=== PATIENT | female | born 1965 | race Caucasian/White ===

== ENCOUNTER 2017-04-02 22:58 | Inpatient (IN) | payer SELFPAY ==
[~2017-04-02] VITALS: Ht 170.2 cm; Wt 48.2 kg
[~2017-04-02 22:58] MED LIST: DICY1TAB26 PO; METR-1 PO
[2017-04-02 23:01] VITALS: PULSE 113; RESP 16; TEMP 97.9; O2SAT 98
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
[2017-04-03] MEDS ORDERED: LACTATED RINGER'S 1000 ML INJ 1,000 ML IV ONE ×2 (01:15→12:00)
[2017-04-03] MEDS ORDERED: LORazepam 1 MG TAB PO PRN (01:30)
[2017-04-03] MEDS ORDERED: LORazepam 2 MG/ML VIAL IV PUSH PRN ×4 (01:30)
[2017-04-03] MEDS ORDERED: LORazepam 2 MG TAB PO PRN (01:30)
[2017-04-03] MEDS ORDERED: FLUMAZENIL 0.5 MG/5 ML VIAL IV PUSH PRN (01:30)
[2017-04-03] MEDS ORDERED: SODIUM CHLORIDE 0.9% FLUSH 10 ML FLUSH IV FLUSH PRN (01:30)
[2017-04-03] MEDS ORDERED: NALOXONE HCL 0.4 MG/ML AMP IV PUSH PRN (01:30)
[2017-04-03 01:55] LABS: AUTOMATED NEUTROPHIL # 7.6 TH/MM3 (1.8-7.7); BASOPHIL # 0.1 TH/MM3 (0-0.2); BASOPHIL % 0.6 % (0.0-2.0); EOSINOPHIL % 0.3 % (0.0-4.0); HEMATOCRIT 40.1 % (35.0-46.0); LYMPH % 28.1 % (9.0-44.0); LYMPHOCYTE # 3.3 TH/MM3 (1.0-4.8); MEAN CELL VOLUME 94.6 FL (80.0-100.0); MEAN CORPUSCULAR HEMOGLOBIN 33.1 PG (27.0-34.0); MEAN PLATELET VOLUME 8.5 FL (7.0-11.0); MONO % 5.7 % (0.0-8.0); MONOCYTE # 0.7 TH/MM3 (0-0.9); NEUT % 65.3 % (16.0-70.0); PLATELET COUNT 294 TH/MM3 (150-450); RED BLOOD COUNT 4.24 MIL/MM3 (4.00-5.30); RED CELL DISTRIBUTION WIDTH 13.5 % (11.6-17.2); WHITE BLOOD COUNT 11.7 TH/MM3 (4.0-11.0)
[2017-04-03 02:11] LABS: BICARBONATE 25.5 MEQ/L (21.0-32.0); CALCIUM 8.6 MG/DL (8.5-10.1); CREATININE 0.86 MG/DL (0.50-1.00)
[2017-04-03] MEDS: SODIUM CHLORIDE 0.9% FLUSH 10 ML FLUSH IV FLUSH PRN ×2 (02:18→02:22)
[2017-04-03 02:19] LABS: PROTHROMBIN TIME - PATIENT 10.1 SEC (9.8-11.6)
[2017-04-03 02:25] VITALS: BP 124/76; PULSE 88; RESP 16; O2SAT 98
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
[2017-04-03 04:08] LABS: BILIRUBIN, URINE NEG (NEG); BLOOD, URINE NEG (NEG); GLUCOSE,URINE NEG (NEG); HYALINE CAST, URINE 9 /lpf (RARE); KETONE, URINE TRACE mg/dL (NEG); MUCUS URINE FEW /lpf (OCC); NITRITE,URINE NEG (NEG); SQUAMOUS EPITHELIAL CELL URINE <1 /hpf (0-5); URINE COLOR YELLOW (YELLW/STRAW); URINE LEUKOCYTE ESTERASE NEG (NEG)
[2017-04-03 07:15] VITALS: BP 112/64; PULSE 90; RESP 18; O2SAT 95
[2017-04-03] MEDS ORDERED: SODIUM CHLORID 0.9% 500 ML INJ 500 ML IV ONE (07:15)
[2017-04-03] MEDS: MORPHINE SULFATE 2 MG/ML INJ IV PUSH PRN ×2 (07:17→14:38)
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
[2017-04-03] MEDS ORDERED: SODIUM CHLORIDE 0.9% FLUSH 10 ML FLUSH IV FLUSH SCH (09:00)
[2017-04-03] MEDS: SODIUM CHLORIDE 0.9% FLUSH 10 ML FLUSH IV FLUSH SCH ×2 (09:07→20:29)
[2017-04-03] MEDS ORDERED: GLYCOPYRROLATE 1 MG/5 ML SYRINGE IV PUSH ONE (12:00)
[2017-04-03] MEDS ORDERED: ceFAZolin INJ 1,000 MG VIAL IV ONE ×2 (12:00→19:45)
[2017-04-03] MEDS ORDERED: ONDANSETRON HCL 4 MG/2 ML VIAL IV ONE (12:00)
[2017-04-03] MEDS ORDERED: ROCURONIUM INJ 50 MG/5 ML SYRINGE IV PUSH ONE (12:00)
[2017-04-03] MEDS ORDERED: DEXAMETHASONE SOD PHOS 4 MG/ML VIAL IV ONE (12:00)
[2017-04-03] MEDS ORDERED: LIDOCAINE HCL 1% PF 5 ML SYRINGE OTHER ONE (12:00)
[2017-04-03] MEDS ORDERED: PROPOFOL 200 MG/20 ML AMP IV ONE (12:00)
[2017-04-03] MEDS ORDERED: NEOSTIGMINE 5 MG/5 ML SYRINGE IV PUSH ONE (12:00)
[2017-04-03 12:17] VITALS: BP 117/70; PULSE 69; RESP 18; O2SAT 96
[2017-04-03] MEDS: SODIUM CHLOR 0.9% 1000 ML INJ 1,000 ML IV SCH (16:33)
[2017-04-03] MEDS ORDERED: CHLORHEXIDINE GLUCONATE 0.12% 15 ML CUP ONE (19:18)
[2017-04-03] MEDS ORDERED: LIDOCAINE 2%/EPINEPHrine PF 1:200,000 20ML SDV ONE (19:18)
[2017-04-03 20:00] VITALS: BP 155/75; PULSE 67; RESP 18; TEMP 96.3; O2SAT 95
[2017-04-03] MEDS ORDERED: MIDAZOLAM HCL 2 MG/2 ML VIAL ONE (21:24)
--- NOTE | 2017-04-03 21:30 | HHI.PR ---
Immediate Post Op Note Procedure Date: Apr 03, 2017 Pre Op Diagnosis: right mandible body/ left subcondylar fracture Post Op Diagnosis: konrad Surgeon: Magdi Goldberg Seeing Eye Dog Trainer(s): faustina moncada Procedure: orif right mandible body fracture closed reduction left subcondylar fracture Complications: none Specimen(s) removed: none Estimated blood loss: 20cc Anesthesia: General, Local (2%lidocaine with 1:200,000 epi 5cc) Patient to: PACU Patient Condition: Good Date/Time of Procedure: SEE SURGICAL CARE RECORD Magdi Goldberg DMD Apr 03, 2017 21:30
[2017-04-03] MEDS ORDERED: methylPREDNISolone SOD SUCC 125 MG/2 ML VIAL ONE (21:42)
[2017-04-03] MEDS ORDERED: *morphine SULFATE 10 MG/ML PERIprocedure ONLY ONE (21:43)
[2017-04-03] MEDS ORDERED: DO NOT ADM ANY ANTICOAGULANT DRUGS PRN (22:00)
[2017-04-04] VITALS: BP 154/72; PULSE 68; RESP 16; TEMP 97.1; O2SAT 98
[2017-04-04] MEDS: MORPHINE SULFATE 2 MG/ML INJ IV PUSH PRN ×2 (02:24→10:35)
[2017-04-04] MEDS: ceFAZolin 1,000 MG/NS 100 ML IV SCH ×4 (02:25→08:00)
[2017-04-04] MEDS: SODIUM CHLOR 0.9% 1000 ML INJ 1,000 ML IV SCH (02:55)
[2017-04-04] MEDS ORDERED: methylPREDNISolone SOD SUCC 125 MG/2 ML VIAL IV SCH (03:00)
[2017-04-04 04:00] VITALS: BP 149/73; PULSE 69; RESP 16; TEMP 97.9; O2SAT 97
[2017-04-04] MEDS ORDERED: methylPREDNISolone ACETATE 80 MG/ML VIAL IM ONE (06:00)
--- NOTE | 2017-04-04 07:08 | HHI.PR ---
Subjective Remarks POD 1 s/p ORIF right mandible fracture closed reduction left subcondylar fracture pt seen and examined, AAOx3, nad pt's nurse at bedside ambulating/voiding, tolerating po Objective Vital Signs Date Time Temp Pulse Resp B/P (MAP) Pulse Ox O2 Delivery O2 Flow Rate FiO2 04/04/17 04:00 97.9 69 16 149/73 (98) 97 04/04/17 00:00 97.1 68 16 154/72 (99) 98 04/03/17 22:00 79 15 137/81 (99) 95 Nasal Cannula 2 04/03/17 21:45 80 15 156/88 (110) 97 Nasal Cannula 2 04/03/17 21:30 83 15 166/99 (121) 100 Simple Mask 10 04/03/17 21:21 106 15 165/98 (120) 95 Simple Mask 10 04/03/17 21:18 98.1 110 15 169/97 (121) 100 Simple Mask 10 04/03/17 20:00 96.3 67 18 155/75 (101) 95 04/03/17 15:39 04/03/17 12:17 69 18 117/70 (86) 96 Room Air 04/03/17 07:15 90 18 112/64 (80) 95 Room Air I/O 04/03/17 04/03/17 04/03/17 04/04/17 04/04/17 04/04/17 07:00 15:00 23:00 07:00 15:00 23:00 Intake Total 500 ml 1694 ml 544 ml Output Total 20 ml Balance 500 ml 1674 ml 544 ml Intake Oral 0 ml IV Total 500 ml 194 ml 544 ml Other 1500 ml Output Estimated Blood Loss 20 ml # Voids 1 Result Diagram: 04/03/17 0135 04/03/17 0135 Objective Remarks chin dressing in place residual r v3 paraesthesia bite in occlusion, arch bars/wires in place wound margins well approximated, sutures intact, hemostatic mild lip edema wire cutters noted HOB Assessment and Plan Assessment and Plan POD 1 s/p ORIF right mandible fracture closed reduction left subcondylar fracture ok to d/c to home from oms standpoint f/up dr goldberg 1 week [phone] send pt home with wire cutters for emergency airway management full liquid diet rx in chart - hydrocodone 7/5 per 15 ml, maintain good oral hygiene keep chin dressing on x 3 day, keep dry Magdi Goldberg DMD Apr 04, 2017 07:08
[2017-04-04 07:56] VITALS: BP 100/72; PULSE 57; RESP 21; TEMP 96.9; O2SAT 95
[2017-04-04] MEDS: SODIUM CHLORIDE 0.9% FLUSH 10 ML FLUSH IV FLUSH SCH (08:29)
[2017-04-04 08:40] LABS: AUTOMATED NEUTROPHIL # 8.5 TH/MM3 (1.8-7.7); BASOPHIL % 0.1 % (0.0-2.0); HEMATOCRIT 35.5 % (35.0-46.0); HEMOGLOBIN 12.3 GM/DL (11.6-15.3); LYMPHOCYTE # 0.7 TH/MM3 (1.0-4.8); MEAN CELL VOLUME 96.5 FL (80.0-100.0); MEAN CORPUSCULAR HEMOGLOBIN 33.4 PG (27.0-34.0); MEAN CORPUSCULAR HGB CONC 34.6 % (32.0-36.0); MEAN PLATELET VOLUME 8.6 FL (7.0-11.0); MONO % 1.3 % (0.0-8.0); MONOCYTE # 0.1 TH/MM3 (0-0.9); NEUT % 91.6 % (16.0-70.0); PLATELET COUNT 215 TH/MM3 (150-450); RED BLOOD COUNT 3.67 MIL/MM3 (4.00-5.30); RED CELL DISTRIBUTION WIDTH 13.4 % (11.6-17.2); WHITE BLOOD COUNT 9.3 TH/MM3 (4.0-11.0)
[2017-04-04 08:52] LABS: ALBUMIN 3.1 GM/DL (3.4-5.0); AST (GOT) 16 U/L (15-37); BLOOD UREA NITROGEN 10 MG/DL (7-18); CALCIUM 8.5 MG/DL (8.5-10.1); CHLORIDE 109 MEQ/L (98-107); CREATININE 0.88 MG/DL (0.50-1.00); GLOMERULAR FILTRATION RATE 68 ML/MIN (>89); GLUCOSE,RANDOM 173 MG/DL (74-106); SODIUM (NA) 141 MEQ/L (136-145)
[2017-04-04 08:53] LABS: ALT (GPT) 16 U/L (10-53)
[2017-04-04 08:56] LABS: ALKALINE PHOSPHATASE 69 U/L (45-117); TOTAL BILIRUBIN ADULT 0.6 MG/DL (0.2-1.0); TOTAL PROTEIN 6.5 GM/DL (6.4-8.2)
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
[2017-04-04 11:13] VITALS: PULSE 94
--- NOTE | 2017-04-04 22:30 | EKG ---
Date Performed: 04/03/2017 Time Performed: 16:43:25 PTAGE: 51 years EKG: Sinus rhythm WITH MARKED SINUS ARRHYTHMIA MODERATE T-WAVE ABNORMALITY, CONSIDER ANTERIOR ISCHEMIA ABNORMAL ECG NO PREVIOUS TRACING DOCTOR: Genaro Cote Interpretating Date/Time 04/04/2017 22:30:01
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
[2017-04-06] MEDS ORDERED: THIAMINE HCL 100 MG TAB PO SCH (09:00)
== END 2017-04-04 12:04 | disposition home or self-care (01) | DRG 132 ==
LOC: NEPD 22:58 → NEDA 04-03 01:22 → NEDH 04-03 05:22 → N07A 04-03 15:34
PROVIDERS: ADMIT Hospitalist; ATTEND Hospitalist
PROC: 0NSVXZZ Reposition Left Mandible, External Approach (ICD-10-PCS; 2017-04-03)
PROC: 0NST04Z Reposition Right Mandible with Internal Fixation Device, Open Approach (ICD-10-PCS; principal; 2017-04-03 19:30)
DX: S02.601A Fracture of unspecified part of body of right mandible, initial encounter for closed fracture (principal); B19.20 Unspecified viral hepatitis C without hepatic coma; S02.622A Fracture of subcondylar process of left mandible, initial encounter for closed fracture; F10.129 Alcohol abuse with intoxication, unspecified; Y04.0XXA Assault by unarmed brawl or fight, initial encounter; F12.90 Cannabis use, unspecified, uncomplicated; F17.210 Nicotine dependence, cigarettes, uncomplicated; Z85.44 Personal history of malignant neoplasm of other female genital organs
CPT/HCPCS: 70486; 80048; 80053; 81001; 85025; 85610; 85730; 93005; C1713; J0690; J1040; J1100; J2250; J2270; J2405; J2710; J2930; J3010; J7030; J7040; J7120

== ENCOUNTER 2017-05-27 00:25 | Inpatient (IN) | payer SELFPAY ==
[~2017-05-27] VITALS: Ht 170.2 cm; Wt 52.0 kg
[2017-05-27] VITALS (8 sets, daily range): BP systolic 93–174; BP diastolic 51–109; PULSE 55–100; RESP 16–20; TEMP 97.4–98.2; O2SAT 93–100
[2017-05-27 02:09] LABS: AUTOMATED NEUTROPHIL # 11.6 TH/MM3 (1.8-7.7); BASOPHIL # 0.1 TH/MM3 (0-0.2); BASOPHIL % 0.5 % (0.0-2.0); EOSINOPHIL % 0.1 % (0.0-4.0); HEMATOCRIT 43.2 % (35.0-46.0); HEMOGLOBIN 15.1 GM/DL (11.6-15.3); LYMPHOCYTE # 2.8 TH/MM3 (1.0-4.8); MEAN CORPUSCULAR HEMOGLOBIN 33.9 PG (27.0-34.0); MEAN CORPUSCULAR HGB CONC 34.9 % (32.0-36.0); MEAN PLATELET VOLUME 8.9 FL (7.0-11.0); MONO % 6.6 % (0.0-8.0); NEUT % 74.8 % (16.0-70.0); PLATELET COUNT 291 TH/MM3 (150-450); RED BLOOD COUNT 4.45 MIL/MM3 (4.00-5.30); RED CELL DISTRIBUTION WIDTH 14.7 % (11.6-17.2); WHITE BLOOD COUNT 15.6 TH/MM3 (4.0-11.0)
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
[2017-05-27 02:26] LABS: ALBUMIN 4.6 GM/DL (3.4-5.0); ALT (GPT) 24 U/L (10-53); AST (GOT) 26 U/L (15-37); BICARBONATE 21.7 MEQ/L (21.0-32.0); BLOOD UREA NITROGEN 17 MG/DL (7-18); CALCIUM 9.6 MG/DL (8.5-10.1); CHLORIDE 96 MEQ/L (98-107); CREATININE 1.85 MG/DL (0.50-1.00); GLOMERULAR FILTRATION RATE 29 ML/MIN (>89); GLUCOSE,RANDOM 82 MG/DL (74-106); SODIUM (NA) 134 MEQ/L (136-145)
[2017-05-27 02:30] LABS: ALKALINE PHOSPHATASE 110 U/L (45-117); TOTAL BILIRUBIN ADULT 0.7 MG/DL (0.2-1.0); TOTAL PROTEIN 8.5 GM/DL (6.4-8.2); TROPONIN I LESS THAN 0.02 NG/ML (0.02-0.05)
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
[2017-05-27] MEDS ORDERED: KETOROLAC TROMETHAMINE 30 MG/ML (IVP) VIAL IV PUSH ONE (03:15)
[2017-05-27] MEDS ORDERED: ONDANSETRON HCL 4 MG/2 ML VIAL IV PUSH ONE ×2 (03:15→06:00)
--- NOTE | 2017-05-27 03:36 | RADRPT ---
EXAM DATE/TIME: 05/27/2017 03:16 [facility] COMPARISON: No previous studies available for comparison. INDICATIONS : Left upper qaudrant and chest pain with vomiting. ORAL CONTRAST: No oral contrast ingested. RADIATION DOSE: 4.52 CTDIvol (mGy) MEDICAL HISTORY : Gastroesophageal reflux disease. Renal calculi. Carcinoma, not otherwise specified. SURGICAL HISTORY : Appendectomy. 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 Using automated exposure control and ad justment of the mA and/or kV according to patient size, radiation dose was kept as low as reasonably achievable to obtain optimal diagnostic quality images. DICOM format image data is available electro nically for review and comparison. FINDINGS: LOWER LUNGS: The visualized lower lungs are clear. LIVER: Homogeneous density without lesion. There is no dilation of the biliary tree. A solitary calcified g allstone noted. The gallbladder is well-distended. No appreciable wall thickening. SPLEEN: Normal size without lesion. PANCREAS: Within normal limits. KIDNEYS: Normal in size and shape. There is no mass, stone, or hydronephrosis. ADRENAL GLANDS: Within normal limits. VASCULAR: There is no aortic aneurysm. BOWEL/MESENTERY: The stomach, small bowel, and colon demonstrate no acute abnormality. There is no free intraperitone al air or fluid. ABDOMINAL WALL: Within normal limits. RETROPERITONEUM: There is no lymphadenopathy. BLADDER: No wall thickening or mass. REPRODUCTIVE: Within normal limits. INGUINAL: There is no lymphadenopathy or hernia. Surgical clips are seen involving the inguinal regions bilater ally. MUSCULOSKELETAL: Within normal limits for patient age. CONCLUSION: 1. No acute abnormality. 2. Cholelithiasis. Benjamin Asif Jr., MD on May 27, 2017 at 3:33 Board Certified Radiologist. This report was verified electronically.
[2017-05-27] MEDS ORDERED: LIDOCAINE HCL 5% PATCH T-DERMAL ONE (03:45)
[2017-05-27 04:44] LABS: BACTERIA, URINE OCC /hpf; BLOOD, URINE NEG (NEG); GLUCOSE,URINE NEG (NEG); KETONE, URINE 80 mg/dL (NEG); MUCUS URINE FEW /lpf (OCC); NITRITE,URINE NEG (NEG); SQUAMOUS EPITHELIAL CELL URINE 1 /hpf (0-5); TRANSITIONAL EPI CELLS, URINE <1 /hpf; URINE COLOR YELLOW (YELLW/STRAW); URINE LEUKOCYTE ESTERASE NEG (NEG)
[2017-05-27 04:45] LABS: BILIRUBIN, URINE NEG (NEG)
[2017-05-27] MEDS ORDERED: AZITHROMYCIN PWD FOR SUSP 1 GM PACKET PO ONE (05:00)
[2017-05-27] MEDS ORDERED: LIDOCAINE HCL 1% 50 ML VIAL IM ONE (05:00)
[2017-05-27] MEDS ORDERED: cefTRIAXone 250 MG VIAL IM ONE (05:00)
[2017-05-27] MEDS ORDERED: SODIUM CHLOR 0.9% 1000 ML INJ 1,000 ML IV ONE (05:15)
[2017-05-27] MEDS ORDERED: metroNIDAZOLE 500 MG TAB PO ONE (05:30)
[2017-05-27] MEDS ORDERED: LIDOCAINE HCL 1% PF 30 ML VIAL OTHER ONE (05:30)
[2017-05-27] MEDS ORDERED: LORazepam 2 MG/ML VIAL IV PUSH PRN ×4 (05:45)
[2017-05-27] MEDS ORDERED: LORazepam 1 MG TAB PO PRN (05:45)
[2017-05-27] MEDS ORDERED: ONDANSETRON HCL 4 MG/2 ML VIAL IVP PRN (05:45)
[2017-05-27] MEDS ORDERED: SENNOSIDES 8.6 MG TAB PO PRN (05:45)
[2017-05-27] MEDS ORDERED: ACETAMINOPHEN 325 MG TAB PO PRN (05:45)
[2017-05-27] MEDS ORDERED: LORazepam 2 MG TAB PO PRN (05:45)
[2017-05-27] MEDS ORDERED: SODIUM CHLORIDE 0.9% FLUSH 10 ML FLUSH IV FLUSH PRN (05:45)
[2017-05-27] MEDS ORDERED: FLUMAZENIL 0.5 MG/5 ML VIAL IV PUSH PRN (05:45)
[2017-05-27] MEDS ORDERED: MORPHINE SULFATE 2 MG/ML INJ IV PUSH PRN (05:45)
[2017-05-27] MEDS ORDERED: HALOPERIDOL LACTATE 5 MG/ML AMP IM PRN (05:45)
[2017-05-27] MEDS ORDERED: MAGNESIUM HYDROXIDE SUSP 30 ML CUP PO PRN (05:45)
[2017-05-27] MEDS ORDERED: BISACODYL 10 MG SUPP RECTAL PRN (05:45)
[2017-05-27] MEDS ORDERED: LACTULOSE SYRUP 20 GM/30 ML CUP PO PRN (05:45)
[2017-05-27] MEDS ORDERED: FAMOTIDINE 20 MG/2 ML VIAL IV PUSH SCH (06:00)
[2017-05-27] MEDS: SODIUM CHLOR 0.9% 1000 ML INJ 1,000 ML IV SCH ×3 (06:12→21:17)
[2017-05-27] MEDS: DOCUSATE SODIUM 50 MG/SENNA 8.6 MG TAB PO SCH ×2 (08:55→21:17)
[2017-05-27] MEDS: SODIUM CHLORIDE 0.9% FLUSH 10 ML FLUSH IV FLUSH SCH ×2 (08:56→21:00)
[2017-05-27] MEDS: FOLIC ACID 1 MG TAB PO SCH (09:06)
[2017-05-27] MEDS: THIAMINE HCL 100 MG TAB PO SCH (09:06)
[2017-05-27] MEDS: MULTIVITAMINS/MINERALS THERAPEUTIC TAB PO SCH (09:06)
[2017-05-27] MEDS ORDERED: OCTREOTIDE INJ 50 MCG/ML AMP IV PUSH ONE (09:30)
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
--- NOTE | 2017-05-27 09:57 | PD.CONS ---
HPI History of Present Illness This is a 51 year old female who presented to ER for intractable n/v that started yesterday and was frequent. She was unable to even keep down water. After a few episodes of vomiting she noticed brownish reddish blood in her vomit and says it was "alot." Admits epigastric tenderness. Admits dark, softer than usual stool in the last week. SHe has been taking goody powder for jaw pain for the last 3 months. NO fawn blood in stool. No prior hx GIB. Never had EGD or colonoscopy. Not on blood thinners. (Carolee Calles) PFSH Past Medical History broken jaw s/p repair vulvar ca Past Surgical History ORIF jaw excision vulvar cancer c section left elbow surgery appendectomy (Carolee Calles) Coded Allergies: No Known Allergies (Verified Adverse Reaction, Unknown, 05/27/17) Family History unk Social History 4-6 drinks daily 1 ppd uses crack, marijuana (Carolee Calles) Review of Systems Constitutional: COMPLAINS OF: Chills, DENIES: Fever Endocrine: DENIES: Polydipsia Eyes: DENIES: Blurred vision Ears, nose, mouth, throat: DENIES: Hearing loss Respiratory: DENIES: Cough Cardiovascular: DENIES: Chest pain Gastrointestinal: COMPLAINS OF: Abdominal pain, Black stools, Nausea, Vomiting , Hematemesis, DENIES: Bloody stools, Constipation, Diarrhea Genitourinary: DENIES: Hematuria Musculoskeletal: DENIES: Muscle aches Integumentary: DENIES: Jaundice Hematologic/lymphatic: DENIES: Bruising Immunologic/allergic: DENIES: Eczema Neurologic: DENIES: Abnormal gait Psychiatric: DENIES: Confusion (Carolee Calles) GI Exam Vitals I&O Vital Signs Date Time Temp Pulse Resp B/P (MAP) Pulse Ox O2 Delivery O2 Flow Rate FiO2 05/27/17 07:17 98.1 80 18 126/83 (97) 98 Room Air 05/27/17 05:27 98.1 88 18 109/73 (85) 100 05/27/17 01:51 97 Room Air 05/27/17 01:51 20 97 Room Air 05/27/17 01:46 20 05/27/17 00:34 97.4 100 16 174/109 (130) 100 I/O 05/26/17 05/26/17 05/26/17 05/27/17 05/27/17 05/27/17 07:00 15:00 23:00 07:00 15:00 23:00 Intake Total 1000 ml Balance 1000 ml Intake IV Total 1000 ml Imaging Last Impressions Ribs X-Ray 05/27/17 0000 Signed Impressions: Service Date/Time: Saturday, May 27, 2017 02:29 - CONCLUSION: 1. Acute left fifth and sixth rib fractures. Benjamin Asif Jr., MD Abdomen/Pelvis CT 05/27/17 0000 Signed Impressions: Service Date/Time: Saturday, May 27, 2017 03:16 - CONCLUSION: 1. No acute abnormality. 2. Cholelithiasis. Benjamin Asif Jr., MD Laboratory Test 05/27/17 01:50 05/27/17 04:21 05/27/17 04:22 White Blood Count 15.6 TH/MM3 Red Blood Count 4.45 MIL/MM3 Hemoglobin 15.1 GM/DL Hematocrit 43.2 % Mean Corpuscular Volume 97.0 FL Mean Corpuscular Hemoglobin 33.9 PG Mean Corpuscular Hemoglobin Concent 34.9 % Red Cell Distribution Width 14.7 % Platelet Count 291 TH/MM3 Mean Platelet Volume 8.9 FL Neutrophils (%) (Auto) 74.8 % Lymphocytes (%) (Auto) 18.0 % Monocytes (%) (Auto) 6.6 % Eosinophils (%) (Auto) 0.1 % Basophils (%) (Auto) 0.5 % Neutrophils # (Auto) 11.6 TH/MM3 Lymphocytes # (Auto) 2.8 TH/MM3 Monocytes # (Auto) 1.0 TH/MM3 Eosinophils # (Auto) 0.0 TH/MM3 Basophils # (Auto) 0.1 TH/MM3 CBC Comment DIFF FINAL Differential Comment Blood Urea Nitrogen 17 MG/DL Creatinine 1.85 MG/DL Random Glucose 82 MG/DL Total Protein 8.5 GM/DL Albumin 4.6 GM/DL Calcium Level 9.6 MG/DL Alkaline Phosphatase 110 U/L Aspartate Amino Transf (AST/SGOT) 26 U/L Alanine Aminotransferase (ALT/SGPT) 24 U/L Total Bilirubin 0.7 MG/DL Sodium Level 134 MEQ/L Potassium Level 4.0 MEQ/L Chloride Level 96 MEQ/L Carbon Dioxide Level 21.7 MEQ/L Anion Gap 16 MEQ/L Estimat Glomerular Filtration Rate 29 ML/MIN Troponin I LESS THAN 0.02 NG/ML Lipase 211 U/L Urine Color YELLOW Urine Turbidity HAZY Urine pH 5.0 Urine Specific [place] 1.020 Urine Protein 30 mg/dL Urine Glucose (UA) NEG mg/dL Urine Ketones 80 mg/dL Urine Occult Blood NEG Urine Nitrite NEG Urine Bilirubin NEG Urine Urobilinogen 2.0 MG/DL Urine Leukocyte Esterase NEG Urine RBC 2 /hpf Urine WBC 4 /hpf Urine Squamous Epithelial Cells 1 /hpf Urine Transitional Epithelial Cells <1 /hpf Urine Bacteria OCC /hpf Urine Granular Casts 77 /lpf Urine Mucus FEW /lpf Microscopic Urinalysis Comment CULT NOT INDICATED Urine Opiates Screen NEG Urine Barbiturates Screen NEG Urine Amphetamines Screen NEG Urine Benzodiazepines Screen NEG Urine Cocaine Screen POS Urine Cannabinoids Screen POS Clue Cells (Wet Prep) PRESENT Vaginal Trichomonas (Wet Prep) NONE SEEN Vaginal Yeast (Wet Prep) NONE SEEN Chlamydia trachomatis DNA (PCR) NOT DETECTED Neisseria gonorrhoeae DNA (PCR) NOT DETECTED Physical Examination HEENT: PERRL; normocephalic; atraumatic; no jaundice. CHEST: CTA CARDIAC: RRR ABDOMEN: Soft, nondistended, diffuse TTP; no hepatosplenomegaly; bowel sounds are present in all four quadrants. EXTREMITIES: No clubbing, cyanosis, or edema. SKIN: Normal; no rash; no jaundice. AGRICULTURAL SERVICES DIRECTOR: No focal deficits; alert and oriented times three. (Carolee Calles) Assessment and Plan Plan ASSESSMENT - intractable n/v, abd pain, hematemesis, questionable melena - unclear etiology could be ulcer, gastroenteritis. onset yesterday, pt cites copious brown and red blood in emesis, multiple frequent episodes vomiting. Admits darker and softer than usual stools than normal PLAN - EGD today - obtain consent - NPO - monitor HH - notify GI of active bleeding - PPI - further recs to follow pt seen by myself and Dr Daniel and this note is on his behalf (Carolee Calles) Physician Comments Seen and examined, plan as above. Procedure explained to the patient including risk and benefits and possible compliactions. Will proceed today. Thank you for the consult. (Rustam Daniel MD) Carolee Calles May 27, 2017 09:57 Rustam Daniel MD May 27, 2017 13:19
[2017-05-27] MEDS ORDERED: ONDANSETRON HCL 4 MG/2 ML VIAL IV PUSH PRN (10:00)
[2017-05-27] MEDS ORDERED: PANTOPRAZOLE INJ 80 MG in SODIUM CHLORIDE 0.9% INJ 35 ML IV ONE (10:17)
[2017-05-27] MEDS: PANTOPRAZOLE INJ 80 MG in SODIUM CHLORIDE 0.9% INJ 100 ML IV SCH ×2 (11:45→22:39)
[2017-05-27] MEDS: OCTREOTIDE INJ 500 MCG in SODIUM CHLORID 0.9% 500 ML INJ 499.5 ML IV SCH (11:50)
[2017-05-27] MEDS ORDERED: DEXAMETHASONE SOD PHOS 4 MG/ML VIAL IV ONE (12:00)
[2017-05-27] MEDS ORDERED: PROPOFOL 200 MG/20 ML AMP IV ONE (12:00)
[2017-05-27] MEDS ORDERED: LIDOCAINE HCL 1% PF 5 ML SYRINGE OTHER ONE (12:00)
[2017-05-27] MEDS ORDERED: SUCCINYLCHOLINE CHLORIDE 200 MG/10 ML VIAL IV ONE (12:00)
[2017-05-27] MEDS ORDERED: ONDANSETRON HCL 4 MG/2 ML VIAL IV ONE (12:00)
[2017-05-27] MEDS ORDERED: ESMOLOL HCL 100 MG/10 ML VIAL IV ONE (12:00)
[2017-05-27] MEDS ORDERED: CHLORHEXIDINE GLUCONATE 2 % 1 PACK (2 CLOTHS) TOPICAL PRN (12:15)
[2017-05-27] MEDS ORDERED: METOPROLOL TARTRATE 25 MG TAB PO PRN (12:15)
[2017-05-27] MEDS ORDERED: POVIDONE IODINE 5% (ANTISEPSIS KIT) 4 APPLICATIONS EACH NARE PRN (12:15)
[2017-05-27] MEDS ORDERED: SODIUM CHLORID 0.9% 500 ML IV PRN (12:15)
[2017-05-27] MEDS ORDERED: LACTATED RINGER'S 1000 ML IV PRN (12:15)
--- NOTE | 2017-05-27 13:25 | GIPROC ---
[facility] [address] [facility]. [facility] [place], [id number] EGD PROCEDURE REPORT EXAM DATE: 05/27/2017 PATIENT NAME: Linda Espinoza MR #: [id number] BIRTHDATE: 1965 ATTENDING: Rustam Daniel MD ORDER #: [id number] SURGICAL SERVICES MANAGER: Delfin Casas and Janet Lima STATUS: inpatient INDICATIONS: The patient is a 51 yr old female here for an EGD due to nausea, vomiting, and hematemesis PROCEDURE PERFORMED: EGD w/ biopsy MEDICATIONS: None and Per Anesthesia. TOPICAL ANESTHETIC: none CONSENT: The patient understands the risks and benefits of the procedure and understands that these risks include, but are not limited to: sedation, allergic reaction, infection, perforation and/or bleeding. Alternative means of evaluation and treatment include, among others: physical exam, x-rays, and/or surgical intervention. The patient elects to proceed with this endoscopic procedure. medical equipment was checked for proper function. Hand hygiene and appropriate measures for infection prevention was taken. After the risks, benefits and alternatives of the procedure were thoroughly explained, Informed consent was verified, confirmed and timeout was successfully executed by the treatment team. The patient was anesthetized with topical anesthesia and the Pentax EG-[id number] endoscope was introduced through the mouth and advanced to the second portion of the duodenum. Retroflexion was performed and was normal The gastroscope was then slowly withdrawn and removed. ESOPHAGUS: There was LA Class B esophagitis noted. STOMACH: Multiple small shallow and round erosions were found in the gastric antrum. Multiple biopsies was performed using cold forceps. Sample sent for histology. DUODENUM: Mild duodenal inflammation was found in the duodenal bulb. ADVERSE EVENTS: There were no complications. IMPRESSIONS: 1. There was LA Class B esophagitis noted 2. Multiple small erosions were found in the gastric antrum; multiple biopsies was performed 3. Duodenal inflammation was found in the duodenal bulb 4. Retroflexion was performed and was normal RECOMMENDATIONS: 1. Await biopsy results. Biopsy results will not be ready for 7-10 days. If you don't hear from us in two weeks, call our office for biopsy results. 2. Continue PPI 3. Avoid NSAIDS PATIENT CONDITION: stable DISPOSITION: Observation REPEAT EXAM: NONE Rustam Daniel MD eSigned: Rustam Daniel MD 05/27/2017 1:24 PM cc: PATIENT NAME: Linda Espinoza MR#: [id number]
[2017-05-27] MEDS ORDERED: DO NOT ADM ANY ANTICOAGULANT DRUGS PRN (13:28)
[2017-05-27] MEDS ORDERED: *MEPERIDINE 25 MG INJ VIAL PERIprocedural Use ONLY ONE (13:38)
[2017-05-27 15:46] LABS: AUTOMATED NEUTROPHIL # 6.9 TH/MM3 (1.8-7.7); BASOPHIL % 0.4 % (0.0-2.0); EOSINOPHIL % 0.5 % (0.0-4.0); HEMATOCRIT 33.9 % (35.0-46.0); HEMOGLOBIN 11.6 GM/DL (11.6-15.3); LYMPH % 14.6 % (9.0-44.0); LYMPHOCYTE # 1.3 TH/MM3 (1.0-4.8); MEAN CELL VOLUME 97.6 FL (80.0-100.0); MEAN CORPUSCULAR HEMOGLOBIN 33.3 PG (27.0-34.0); MEAN CORPUSCULAR HGB CONC 34.2 % (32.0-36.0); MEAN PLATELET VOLUME 8.7 FL (7.0-11.0); MONO % 4.3 % (0.0-8.0); MONOCYTE # 0.4 TH/MM3 (0-0.9); NEUT % 80.2 % (16.0-70.0); PLATELET COUNT 208 TH/MM3 (150-450); RED BLOOD COUNT 3.48 MIL/MM3 (4.00-5.30); RED CELL DISTRIBUTION WIDTH 15.1 % (11.6-17.2); WHITE BLOOD COUNT 8.6 TH/MM3 (4.0-11.0)
[2017-05-27 15:58] LABS: PROTHROMBIN TIME - PATIENT 10.3 SEC (9.8-11.6)
--- NOTE | 2017-05-27 20:21 | EKG ---
Date Performed: 05/27/2017 Time Performed: 00:40:33 PTAGE: 51 years EKG: Sinus rhythm POSSIBLE RIGHT ATRIAL ENLARGEMENT LEFT ATRIAL ENLARGEMENT NONSPECIFIC T-WAVE ABNORMALITY Compared to previous tracing, there's been improvement in the ischemic appearing anteroseptal T wave changes Cli nical correlation remains important ABNORMAL ECG NO PREVIOUS TRACING DOCTOR: Dominique Brandt Interpretating Date/Time 05/27/2017 20:20:05
[2017-05-27 23:27] LABS: HEMATOCRIT 31.6 % (35.0-46.0); HEMOGLOBIN 11.2 GM/DL (11.6-15.3)
[2017-05-28] VITALS: BP 124/71; PULSE 52; PULSE 58; RESP 19; TEMP 98.4; O2SAT 97
[2017-05-28 04:00] VITALS: BP 115/75; PULSE 53; RESP 18; TEMP 97.7; O2SAT 97
[2017-05-28 04:30] VITALS: PULSE 50
[2017-05-28] MEDS: PANTOPRAZOLE INJ 80 MG in SODIUM CHLORIDE 0.9% INJ 100 ML IV SCH (05:59)
[2017-05-28 08:00] VITALS: BP 99/62; PULSE 55; RESP 18; TEMP 97.4; O2SAT 95
[2017-05-28] MEDS: SODIUM CHLOR 0.9% 1000 ML INJ 1,000 ML IV SCH (08:36)
[2017-05-28] MEDS: SODIUM CHLORIDE 0.9% FLUSH 10 ML FLUSH IV FLUSH SCH (09:00)
[2017-05-28 09:32] LABS: AUTOMATED NEUTROPHIL # 5.3 TH/MM3 (1.8-7.7); BASOPHIL % 0.2 % (0.0-2.0); EOSINOPHIL % 0.3 % (0.0-4.0); HEMATOCRIT 31.9 % (35.0-46.0); HEMOGLOBIN 11.1 GM/DL (11.6-15.3); LYMPH % 32.2 % (9.0-44.0); LYMPHOCYTE # 2.8 TH/MM3 (1.0-4.8); MEAN CELL VOLUME 99.6 FL (80.0-100.0); MEAN CORPUSCULAR HEMOGLOBIN 34.6 PG (27.0-34.0); MEAN CORPUSCULAR HGB CONC 34.7 % (32.0-36.0); MEAN PLATELET VOLUME 8.6 FL (7.0-11.0); MONO % 6.4 % (0.0-8.0); MONOCYTE # 0.6 TH/MM3 (0-0.9); NEUT % 60.9 % (16.0-70.0); PLATELET COUNT 193 TH/MM3 (150-450); RED CELL DISTRIBUTION WIDTH 14.9 % (11.6-17.2); WHITE BLOOD COUNT 8.7 TH/MM3 (4.0-11.0)
[2017-05-28] MEDS: OCTREOTIDE INJ 500 MCG in SODIUM CHLORID 0.9% 500 ML INJ 499.5 ML IV SCH (09:32)
[2017-05-28] MEDS: THIAMINE HCL 100 MG TAB PO SCH (09:33)
[2017-05-28] MEDS: DOCUSATE SODIUM 50 MG/SENNA 8.6 MG TAB PO SCH (09:33)
[2017-05-28] MEDS: MULTIVITAMINS/MINERALS THERAPEUTIC TAB PO SCH (09:33)
[2017-05-28] MEDS: FOLIC ACID 1 MG TAB PO SCH (09:33)
[2017-05-28 09:59] LABS: CALCIUM 8.1 MG/DL (8.5-10.1); CREATININE 0.85 MG/DL (0.50-1.00)
[2017-05-28 12:32] VITALS: BP 128/77
[2017-05-28] MEDS ORDERED: PROT40TA PO (13:30)
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
--- NOTE | 2017-05-28 13:33 | HHI.PR ---
Subjective Remarks Nursing denies any deterioration since last night. Patient tolerated full liquid diet very well. Hemoglobin is holding. Denies any further nausea vomiting. Looking forward to discharge. Objective Vital Signs Date Time Temp Pulse Resp B/P (MAP) Pulse Ox O2 Delivery O2 Flow Rate FiO2 05/28/17 12:32 128/77 (94) 05/28/17 08:00 97.4 55 18 99/62 (74) 95 05/28/17 04:30 50 05/28/17 04:00 97.7 53 18 115/75 (88) 97 05/28/17 00:00 98.4 52 19 124/71 (88) 97 05/28/17 00:00 58 05/27/17 20:00 55 05/27/17 20:00 98.2 57 20 122/82 (95) 95 05/27/17 17:49 98.1 63 17 93/51 (65) 98 05/27/17 16:00 97.6 60 20 109/61 (77) 96 05/27/17 14:27 98.0 65 20 93/57 (69) 93 05/27/17 13:45 80 19 112/64 (80) 94 Room Air I/O 05/27/17 05/27/17 05/27/17 05/28/17 05/28/17 05/28/17 07:00 15:00 23:00 07:00 15:00 23:00 Intake Total 1000 ml 200 ml 1100 ml 1321 ml 1500 ml Balance 1000 ml 200 ml 1100 ml 1321 ml 1500 ml IV Total 1000 ml 1100 ml 1321 ml 1500 ml Other 200 ml # Voids 3 2 # Bowel Movements 0 0 Result Diagram: 05/28/17 0846 05/28/17 0846 Objective Remarks Abdomen soft, nontender, nondistended Sternum mildly tender to palpation likely secondary to mild costochondritis secondary to vomiting previously A/P Assessment and Plan Patient originally presented with hematemesis, resolved. EGD showed IMPRESSIONS: 1. There was LA Class B esophagitis noted 2. Multiple small erosions were found in the gastric antrum; multiple biopsies was performed 3. Duodenal inflammation was found in the duodenal bulb 4. Retroflexion was performed and was normal Stable to discharge from GI standpoint. Will discharge on Protonix. Treated with one-time dose of 2 g of metronidazole for bacterial vaginosis. Patient counseled to stay away from NSAIDs and TCH as this could worsen symptoms, and wean off her alcohol drinking. Darren Brantley MD May 28, 2017 13:33
[2017-05-28] MEDS ORDERED: metroNIDAZOLE 500 MG TAB PO ONE (13:45)
--- NOTE | 2017-05-28 14:24 | HHI.GIFU ---
Subjective Remarks Pt eating lunch, states she is very hungry Denies nausea, vomiting Abdominal pain mild No BM since procedure (Yuni Marie) Objective Vitals I&O Vital Signs Date Time Temp Pulse Resp B/P (MAP) Pulse Ox O2 Delivery O2 Flow Rate FiO2 05/28/17 12:32 128/77 (94) 05/28/17 08:00 97.4 55 18 99/62 (74) 95 05/28/17 04:30 50 05/28/17 04:00 97.7 53 18 115/75 (88) 97 05/28/17 00:00 98.4 52 19 124/71 (88) 97 05/28/17 00:00 58 05/27/17 20:00 55 05/27/17 20:00 98.2 57 20 122/82 (95) 95 05/27/17 17:49 98.1 63 17 93/51 (65) 98 05/27/17 16:00 97.6 60 20 109/61 (77) 96 05/27/17 14:27 98.0 65 20 93/57 (69) 93 I/O 05/27/17 05/27/17 05/27/17 05/28/17 05/28/17 05/28/17 07:00 15:00 23:00 07:00 15:00 23:00 Intake Total 1000 ml 200 ml 1100 ml 1321 ml 1500 ml Balance 1000 ml 200 ml 1100 ml 1321 ml 1500 ml IV Total 1000 ml 1100 ml 1321 ml 1500 ml Other 200 ml # Voids 3 2 # Bowel Movements 0 0 Laboratory Laboratory Tests Test 05/27/17 14:33 05/27/17 14:35 05/27/17 23:04 05/28/17 08:46 Prothrombin Time 10.3 Prothromb Time International Ratio 1.0 White Blood Count 8.6 8.7 Red Blood Count 3.48 3.20 Hemoglobin 11.6 11.2 11.1 Hematocrit 33.9 31.6 31.9 Mean Corpuscular Volume 97.6 99.6 Mean Corpuscular Hemoglobin 33.3 34.6 Mean Corpuscular Hemoglobin Concent 34.2 34.7 Red Cell Distribution Width 15.1 14.9 Platelet Count 208 193 Mean Platelet Volume 8.7 8.6 Neutrophils (%) (Auto) 80.2 60.9 Lymphocytes (%) (Auto) 14.6 32.2 Monocytes (%) (Auto) 4.3 6.4 Eosinophils (%) (Auto) 0.5 0.3 Basophils (%) (Auto) 0.4 0.2 Neutrophils # (Auto) 6.9 5.3 Lymphocytes # (Auto) 1.3 2.8 Monocytes # (Auto) 0.4 0.6 Eosinophils # (Auto) 0.0 0.0 Basophils # (Auto) 0.0 0.0 CBC Comment DIFF FINAL DIFF FINAL Differential Comment Blood Urea Nitrogen 8 Creatinine 0.85 Random Glucose 144 Calcium Level 8.1 Sodium Level 144 Potassium Level 4.2 Chloride Level 111 Carbon Dioxide Level 24.0 Anion Gap 9 Estimat Glomerular Filtration Rate 71 Imaging Last Impressions Ribs X-Ray 05/27/17 0000 Signed Impressions: Service Date/Time: Saturday, May 27, 2017 02:29 - CONCLUSION: 1. Acute left fifth and sixth rib fractures. Benjamin Asif Jr., MD Abdomen/Pelvis CT 05/27/17 0000 Signed Impressions: Service Date/Time: Saturday, May 27, 2017 03:16 - CONCLUSION: 1. No acute abnormality. 2. Cholelithiasis. Benjamin Asif Jr., MD Physical Exam HEENT: Normocephalic; atraumatic CHEST: Even/unlabored CARDIAC: RRR ABDOMEN: Soft, nondistended, mild epigastric tenderness; bowel sounds active EXTREMITIES: No clubbing, cyanosis, or edema. SKIN: Normal; no rash; no jaundice. WIRE INSERTER: No focal deficits; alert and oriented times three. (Yuni Marie [facility]) Assessment and Plan Plan ASSESSMENT - intractable n/v, abd pain, hematemesis, questionable melena - unclear etiology could be ulcer, gastroenteritis. onset yesterday, pt cites copious brown and red blood in emesis, multiple frequent episodes vomiting. Admits darker and softer than usual stools than normal (05/28) --> Pt eating lunch during my exam, tolerating. Denies any nausea, vomiting. Epigastric abdominal pain is very mild. S/P EGD yesterday --> Class B esophagitis Multiple erosions in the gastric antrum. Multiple biopsies. Duodenal inflammation in the duodenal bulb. H/H stable. Octreotide gtt and Protonix gtt DCd. PLAN - Protonix PO - Avoid NSAIDs - Avoid ETOH - EGD biopsy pending - OK to DC from a GI standpoint - Have pt follow up with GI in 1-2 weeks in the office Pt has been seen and examined by myself and Dr. Daniel and this note is written on his behalf (Yuni Marie) Physician Comments Agree with above assessment and plan. (Rustam Daniel MD) Yuni Marie May 28, 2017 14:24 Rustam Daniel MD May 28, 2017 21:32
[2017-05-28] MEDS ORDERED: LIDOCAINE HCL 5% PATCH T-DERMAL ONE (14:30)
[2017-05-29] MEDS ORDERED: PANTOPRAZOLE SOD 40 MG DELAYED RELEASE TAB PO SCH (09:00)
== END 2017-05-28 15:10 | disposition home or self-care (01) | DRG 378 ==
LOC: NEPC 00:25 → NEDA 05:49 → NEDH 10:04 → NEDA 14:22 → N04B 17:11
PROVIDERS: ADMIT Hospitalist; ATTEND Hospitalist
PROC: 0DB78ZX Excision of Stomach, Pylorus, Via Natural or Artificial Opening Endoscopic, Diagnostic (ICD-10-PCS; principal; 2017-05-27 12:55)
DX: K92.0 Hematemesis (principal); N17.9 Acute kidney failure, unspecified; E87.2 Acidosis; S22.42XA Multiple fractures of ribs, left side, initial encounter for closed fracture; E87.8 Other disorders of electrolyte and fluid balance, not elsewhere classified; E86.0 Dehydration; N76.0 Acute vaginitis; F10.10 Alcohol abuse, uncomplicated; F12.10 Cannabis abuse, uncomplicated; F14.10 Cocaine abuse, uncomplicated; K21.0 Gastro-esophageal reflux disease with esophagitis; K25.9 Gastric ulcer, unspecified as acute or chronic, without hemorrhage or perforation; K29.70 Gastritis, unspecified, without bleeding; F17.210 Nicotine dependence, cigarettes, uncomplicated; M19.90 Unspecified osteoarthritis, unspecified site; B19.20 Unspecified viral hepatitis C without hepatic coma; Y04.0XXA Assault by unarmed brawl or fight, initial encounter; Z59.0 Homelessness; Z85.44 Personal history of malignant neoplasm of other female genital organs
CPT/HCPCS: 36415; 71101; 74176; 80048; 80053; 80307; 81001; 82948; 83690; 84484; 85014; 85018; 85025; 85610; 87210; 87491; 87591; 88305; 88312; 93005; 94150; 96372; 96374; 96375; C9113; J0330; J0696; J1100; J1885; J2175; J2354; J2405; J7030; J7040

== ENCOUNTER 2018-01-06 13:02 | Inpatient (IN) ==
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
[2018-01-06] MEDS ORDERED: Morphine Inj 4 MG/ML Vial IV.PUSH ONE (20:12)
[2018-01-06 20:40] LABS: Baso # (Auto) 0.1 th/mm3 (0.0-0.2); Baso % (Auto) 0.5 % (0.0-2.0); Eos % (Auto) 0.3 % (0.0-4.0); Hematocrit 47.4 % (35.0-46.0); Hemoglobin 16.4 gm/dL (11.6-15.3); Lymph # (Auto) 2.3 th/mm3 (1.0-4.8); Lymph % (Auto) 19.8 % (9.0-44.0); Mean Corpuscular HGB Conc 34.6 % (32.0-36.0); Mean Corpuscular Hemoglobin 33.3 pg (27.0-34.0); Mean Corpuscular Volume 96.2 fL (80.0-100.0); Mean Platelet Volume 8.5 fL (7.0-11.0); Mono # (Auto) 0.8 th/mm3 (0.0-0.9); Mono % (Auto) 6.9 % (0.0-8.0); Neut # (Auto) 8.3 th/mm3 (1.8-7.7); Neut % (Auto) 72.5 % (16.0-70.0); Platelet Count 219 th/mm3 (150-450); Red Blood Count 4.93 mil/mm3 (4.00-5.30); Red Cell Distribution Width 13.3 % (11.6-17.2); White Blood Count 11.4 th/mm3 (4.0-11.0)
[2018-01-06 20:52] LABS: Prothrombin Time 9.9 sec (9.8-11.6)
[2018-01-06 21:08] LABS: Albumin 4.1 g/dL (3.4-5.0); Aspartate Aminotransferase 20 U/L (15-37); Blood Urea Nitrogen 10 mg/dL (7-18); Calcium 9.1 mg/dL (8.5-10.1); Carbon Dioxide 24.6 meq/L (21.0-32.0); Glomerular Filtration Rate 70 mL/min (>89); Glucose,Random 90 mg/dL (74-106)
[2018-01-06 21:10] LABS: Alanine Aminotransferase 22 U/L (10-53)
[2018-01-06 21:29] LABS: Alkaline Phosphatase 83 U/L (45-117); Anion Gap 10 meq/L (5-15); Chloride 104 meq/L (98-107); Potassium 4.1 meq/L (3.5-5.1); Sodium 139 meq/L (136-145); Total Protein 8.4 g/dL (6.4-8.2)
[2018-01-06] MEDS ORDERED: Bisacodyl 10 MG Supp RECTAL PRN (22:31)
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
[2018-01-07] MEDS: Sod Chloride 0.9% Inj 1,000 ML IV.CONT SCH ×4 (00:15→21:34)
[2018-01-07] MEDS: Morphine Sulfate Inj 2 MG/ML Vial IV.PUSH PRN ×6 (00:16→21:32)
[2018-01-07] MEDS: Senna/Docusate Sodium 8.6/50 MG Tablet PO SCH ×2 (08:03→21:32)
[2018-01-07 09:07] LABS: Baso % (Auto) 0.5 % (0.0-2.0); Eos % (Auto) 0.5 % (0.0-4.0); Hematocrit 45.2 % (35.0-46.0); Hemoglobin 15.6 gm/dL (11.6-15.3); Lymph # (Auto) 1.3 th/mm3 (1.0-4.8); Lymph % (Auto) 20.4 % (9.0-44.0); Mean Corpuscular HGB Conc 34.5 % (32.0-36.0); Mean Corpuscular Hemoglobin 33.5 pg (27.0-34.0); Mean Corpuscular Volume 97.2 fL (80.0-100.0); Mean Platelet Volume 8.8 fL (7.0-11.0); Mono # (Auto) 0.7 th/mm3 (0.0-0.9); Mono % (Auto) 11.6 % (0.0-8.0); Neut # (Auto) 4.3 th/mm3 (1.8-7.7); Platelet Count 174 th/mm3 (150-450); Red Blood Count 4.65 mil/mm3 (4.00-5.30); Red Cell Distribution Width 13.5 % (11.6-17.2); White Blood Count 6.4 th/mm3 (4.0-11.0)
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
[2018-01-07 09:36] LABS: Calcium 8.9 mg/dL (8.5-10.1); Carbon Dioxide 26.7 meq/L (21.0-32.0); Potassium 3.6 meq/L (3.5-5.1)
[2018-01-07] MEDS ORDERED: Sod Chloride 0.9% Inj 1,000 ML IV.SIG SCH (10:45)
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
[2018-01-08] MEDS: Morphine Sulfate Inj 2 MG/ML Vial IV.PUSH PRN ×6 (01:18→21:06)
[2018-01-08] MEDS: Sod Chloride 0.9% Inj 1,000 ML IV.CONT SCH ×3 (04:41→23:41)
[2018-01-08] MEDS: Senna/Docusate Sodium 8.6/50 MG Tablet PO SCH ×2 (08:16→21:06)
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
[2018-01-09] MEDS: Morphine Sulfate Inj 2 MG/ML Vial IV.PUSH PRN ×5 (00:54→23:46)
[2018-01-09] MEDS: Sod Chloride 0.9% Inj 1,000 ML IV.CONT SCH ×3 (05:55→18:43)
[2018-01-09] MEDS ORDERED: Sodium Chlor 0.9% Inj 500 ML IV.SIG SCH (06:00)
[2018-01-09] MEDS: Senna/Docusate Sodium 8.6/50 MG Tablet PO SCH ×2 (08:28→23:39)
[2018-01-09] MEDS: Chlorhexidine Gluconate 2% 1 Pack (2 Cloths) TOPICAL ONE ×2 (09:33→10:02)
[2018-01-09] MEDS ORDERED: Dexmedetomidine Inj 200 MCG/2 ML Vial ONE (10:49)
[2018-01-09] MEDS ORDERED: HYDROmorphone PF Inj 1 MG/ML Ampul ONE (10:49)
[2018-01-09] MEDS ORDERED: ceFAZolin 2 GM Premix Inj 2 GM/50 ML PIGGYBACK IV.SIG ONE (10:52)
[2018-01-09] MEDS ORDERED: Chlorhexidine Gluconate 0.12% Liq 15 ML UDC ONE (10:52)
[2018-01-09] MEDS ORDERED: Bupivacaine/Epinephrine Inj 0.25% 50 ML Vial ONE (10:52)
[2018-01-09] MEDS ORDERED: Neostigmine Inj 5 MG/5 ML Syringe IV.PUSH ONE (11:06)
[2018-01-09] MEDS ORDERED: Lidocaine PF 1% Inj 5 ML Syringe OTHER ONE (11:06)
[2018-01-09] MEDS ORDERED: Glycopyrrolate Inj 1 MG/5 ML Syringe IV.PUSH ONE (11:06)
[2018-01-09] MEDS ORDERED: Naloxone Inj 0.4 MG/ML Vial ONE (12:35)
[2018-01-09] MEDS ORDERED: Famotidine PF Inj 20 MG/2 ML Vial ONE (12:45)
[2018-01-09] MEDS ORDERED: *Promethazine Inj 25 MG/ML Vial PERIprocedural use ONLY ONE (12:55)
[2018-01-09] MEDS ORDERED: *Meperidine Inj 25 MG/ML Vial PERIprocedural Use ONLY ONE (12:57)
[2018-01-09] MEDS ORDERED: fentaNYL Citrate Inj 100 MCG/2 ML Ampul ONE (13:06)
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
[2018-01-10] MEDS: Morphine Sulfate Inj 2 MG/ML Vial IV.PUSH PRN ×2 (03:56→08:14)
[2018-01-10] MEDS: Sod Chloride 0.9% Inj 1,000 ML IV.CONT SCH ×2 (05:55→13:21)
[2018-01-10] MEDS ORDERED: Morphine Sulfate Inj 2 MG/ML Vial IV.PUSH PRN (09:54)
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
[2018-01-10] MEDS: Acetaminophen-HYDROcodone 325/7.5 Liq 15 ML UDC PO PRN ×2 (10:15→13:56)
[2018-01-10] MEDS: Senna/Docusate Sodium 8.6/50 MG Tablet PO SCH (10:38)
[2018-01-10 12:10] VITALS: PULSE 64
[2018-01-10 16:21] VITALS: BP 101/62; RESP 16; TEMP 97.5; O2SAT 95
--- NOTE | 2018-01-10 17:23 | P.OP ---
- Preoperative Diagnosis (1) Fracture of mandible - Postoperative Diagnosis (1) Fracture of mandible Date of procedure: 01/09/18 Procedure: Maxillomandibular fixation ([id number]) Anesthesia: GETA Surgeon: Tyler Kennedy MD Operation and Findings: 52-year-old female who presented with a left mandibular angle fracture. Risk benefits alternative treatments discussed. All questions answered and the patient expressed understanding. Patient elected to assume the risks of maxillomandibular fixation of the above fracture. Informed consent obtained. The surgical site was marked in the preoperative holding bay. The patient was given antibiotics on-call to the operating room. The patient was taken to the operating room and all pressure points were padded. A surgical timeout was performed. After the smooth induction of general anesthesia, the surgical site was prepped and draped in the usual sterile fashion. As the fracture was minimally displaced, the patient was placed into hybrid MMF with dental elastics. All needle sponge and instrument counts were correct x2. The patient was awoken from anesthesia and arrived stable doing well to the PACU.
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
== END 2018-01-10 16:32 | disposition home or self-care (01) ==
LOC: NEPE 13:02 → NEDA 21:39 → N06 22:52
PROVIDERS: ADMIT Hospitalist; ATTEND Hospitalist
PROC: ORIFMAN (2018-01-09 11:06)